=== PATIENT | female | born 1985 | race Hispanic/Latino ===

== ENCOUNTER 2021-06-04 14:20 | Emergency (ER) | payer OTHER ==
[~2021-06-04] VITALS: Ht 157.5 cm; Wt 81.7 kg
[2021-06-04] MEDS ORDERED: HYDROCODON-ACE1 EA10 PO (17:45)
--- OUTSIDE RECORDS SUMMARY | 2021-06-04 20:40 | XMS ---
PreManage Notification: LESLIE GODINEZ Security Nurse Practitioner Home Assessments Events No recent Security Events currently on file CRITERIA MET - [facility] - 2 Visits in 30 Days CARE PROVIDERS There are no care providers on record at this time. Jake has no Care Guidelines for this patient. Narcisa VISIT COUNT (12 MO.) 1 [facility] 1 [facility] TOTAL 2 NOTE: Visits indicate total known visits. ED/C VISIT TRACKING (12 MO.) [facility] [place] [facility] COMPLAINT: - L KNEE INJURY 06/03/2021 12:37 [facility] TYPE: Emergency DIAGNOSES: - Knee Pain - Displaced transverse fracture of left patella, initial encounter for closed fracture INPATIENT VISIT TRACKING (12 MO.) No inpatient visits to display in this time frame [email or web address]
== END 2021-06-04 20:23 | disposition home or self-care (01) ==
LOC: ED 14:20
DX: S82.002A Unspecified fracture of left patella, initial encounter for closed fracture (principal); Z79.891 Long term (current) use of opiate analgesic; W19.XXXA Unspecified fall, initial encounter
CPT/HCPCS: 73560; 99283-25

== ENCOUNTER 2021-06-15 09:52 | Day surgery (SDC) | payer OTHER ==
[~2021-06-15] VITALS: Ht 157.5 cm; Wt 80.0 kg
--- NOTE | ~2021-06-15 | OR ---
[facility] [address], [place] [address] Draft DATE OF OPERATION: 06/15/2021 SURGEON: Lindsay Shah MD PREOPERATIVE DIAGNOSIS: Displaced transverse left patella fracture. POSTOPERATIVE DIAGNOSIS: Displaced transverse left patella fracture. PROCEDURE PERFORMED: Open reduction and internal fixation of left patella. EYEWEAR MANUFACTURING TECH: None. ANESTHESIA: General. BLOOD LOSS: None. TOURNIQUET TIME: 42 minutes. IMPLANTS: 1.5 mm wire with two 1.6 K-wires. BRIEF HISTORY: Kami is a 35-year-old female who suffered an industrial accident. 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 She had a transverse fracture. However, she went to several hospitals before ending up with us. There was a delay of about 12 days to surgery. Risks and benefits of operative treatment were discussed with her and she elected to proceed. DESCRIPTION OF PROCEDURE: Once consent was obtained, she was taken to the operating room. After adequate anesthesia, she was placed on the operating room table. A well-padded proximal thigh tourniquet was placed. The leg was prepped and draped in a standard sterile fashion, exsanguinated using Esmarch bandage and tourniquet, inflated to 250 mmHg. A PATIENT NAME: KAMI GODINEZ OPERATIVE REPORT DATE OF : 83 REPORT #: [id number] PHYSICIAN: LINDSAY SHAH MD PCP: NO PRIMARY CARE PHYSICIAN REPORT IS CONFIDENTIAL AND NOT TO BE RELEASED WITHOUT AUTHORIZATION [facility] [address], [place] [address] Draft longitudinal incision was taken through the skin and subcutaneous tissue and directly down on the extensor mechanism. Subcutaneous dissection medially and laterally revealed the fracture and the in the retinaculum. The fracture was distracted and cleaned of all debris with curettes and irrigation. The fracture was a pure transverse fracture and using a large tenaculum, we were able to reduce it and palpate the undersurface which was flushed. We then held it in position and passed two K-wires across the patella from superior to inferior pole. Once this was completed, the mm wire was placed in the in a standard [id number] configuration beneath the two wires through the tendon with twists at the superior medial and superior lateral poles of the patella. Once this was accomplished, the wire was tensioned until the K-wires just started to bend. The two twists in the tension band were then buried in the soft tissue. Both K-wires were then cut and bent distally such that they were hooked. Two small incisions in the patellar tendon allowed us to pull them proximally engaging the wire. The proximal ends were then cut and bent similarly. Once this was completed, the knee was taken through range of motion from 0 to 90 degrees, however, it was extremely stiff from the long delay of the surgery. We were able to get it to about 100 degrees with no gapping at the fracture site. The wound was copiously irrigated with normal saline and closed with #0 Stratafix and andreina. Wound was dressed with an Acticoat 7 dressing, ABD, and Pedro wrap. She tolerated the procedure well. All sponge, needle, and instrument counts were correct. Lindsay Shah MD BA/HANK /[id number] Copies: ~ PATIENT NAME: RAE MENDOZAKAMI OPERATIVE REPORT DATE OF : 83 REPORT #: [id number] PHYSICIAN: LINDSAY SHAH MD PCP: NO PRIMARY CARE PHYSICIAN REPORT IS CONFIDENTIAL AND NOT TO BE RELEASED WITHOUT AUTHORIZATION
[~2021-06-15 09:52] MED LIST: HYDROCODON-ACE1 EA10 PO
--- NOTE | 2021-06-15 10:25 | NUR ---
BOTH NARES SWABBED FOR COVID-19 WITHOUT COMPLICATION. SAMPLE TAKEN TO LAB.
--- NOTE | 2021-06-15 11:25 | NUR ---
1100-PATIENT BACK TO ROOM FROM PACU ON RA. RECEIVED REPORT FROM ASAD SOLORIO. PATIENT IS AWAKE AND TALKING. VSS. DENIES PAIN AND NAUSEA. PATIENT IS ON CBI WITH LIGHT PINK URINE OUTPUT. ORDERED PATIENT LUNCH. PATIENT IS DRINKING WATER. CALL LIGHT WITHIN REACH. 1120-LUNCH PROVIDED TO PATIENT.
[2021-06-15] MEDS ORDERED: HYDROCODON-ACE1 EA11 PO (14:22)
[2021-06-15] MEDS ORDERED: DICLOFENAC SODI75 MG PO (14:22)
--- NOTE | 2021-06-15 14:31 | NUR ---
06/15/21 1431 Nadja Shah 1420 PT TO PACU ORAL AIRWAY IN PLACE O2 VIA MASK.
--- NOTE | 2021-06-15 15:33 | NUR ---
1520 PT RETURNED TO ROOM FROM PACU AWAKE AND TALKING DENIES PAIN OR NAUSEA.
--- NOTE | 2021-06-15 16:00 | NUR ---
PT SLEEPING COMFORABLY, AT BEDSIDE, CALL LIGHT WITHIN REACH
--- NOTE | 2021-06-15 17:23 | NUR ---
1630 PT DRINKING CHICKEN BROTH TOLERATES WELL, 1645 HELPED PT UP TO BATHROOM VIA WHEELCHAIR, SHE WAS ABLE TO VOID 500 ML OF CLEAR YELLOW URINE. HELPED PT GET DRESSED, GAVE PT DISCHARGE INSTRUCTIONS IN GABONESE WITH PRESENT, BOTH VOICED UNDERSTANDING.
== END 2021-06-15 17:15 | disposition home or self-care (01) ==
LOC: DS 09:52
PROVIDERS: ATTEND Specialist
PROC: 0QSF04Z Reposition Left Patella with Internal Fixation Device, Open Approach (ICD-10-PCS; principal; 2021-06-15 15:00)
DX: S82.032A Displaced transverse fracture of left patella, initial encounter for closed fracture (principal); W01.0XXA Fall on same level from slipping, tripping and stumbling without subsequent striking against object, initial encounter; Z20.822 Contact with and (suspected) exposure to COVID-19
CPT/HCPCS: 73560; 84703; C9803; J0690; J1100; J1200; J1885; J2001; J2250; J2270; J2405; J2704; J2765; J2795; J3010; J7121; U0003

== ENCOUNTER 2022-12-03 06:25 | Day surgery (SDC) | payer OTHER ==
[2022-12-02 11:32] VITALS: BP 153/84
[2022-12-02 11:54] VITALS: BP 153/84
[~2022-12-03] VITALS: Ht 157.5 cm; Wt 84.1 kg
[~2022-12-03 06:25] MED LIST changes: +DICLOFENAC SODI75 MG PO; +HYDROCODON-ACE1 EA11 PO; +OXYCODONE HCL5 MG PO
[2022-12-03 07:05] VITALS: BP 154/80
[2022-12-03] MEDS ORDERED: DICLOFENAC SODI75 MG PO (10:07)
[2022-12-03] MEDS ORDERED: HYDROCODON-ACE1 EA11 PO (10:07)
--- NOTE | 2022-12-03 10:24 | NUR ---
12/03/22 Nadja Torres 1003 PT TO PACU SLEEPING JAW THRUST NEEDED TO MAINTAIN OPEN AIRWAY O2 VIA MASK AT 6L FOGGING NOTED ON MASK.
[2022-12-03 11:07] VITALS: BP 169/83
--- NOTE | 2022-12-03 11:15 | NUR ---
LE 1100 PATIENT IS ALERT AND ORIENTED. PATIENT BREATHING EQUAL AND UNLABORED. OXYGEN SATURATIONS ABOVE 90% ON ROOM AIR. PATIENT STATES SHE IS A 4/10 IN PAIN AND THAT IT IS TOLERABLE FOR NOW. WATER AND PUDDING GIVEN TO PATIENT. PATIENT DENIES BEING NAUSEATED AT THIS TIME. PATIENT CMST INTACT ON LEFT LOWER EXTERMITIY. DRESSING IS CLEAN, DRY AND INTACT. SCD'S ON. IVF INFUSING. CALL LIGHT WITHIN REACH NO FUTHER NEEDS. NO QUESTIONS AT THIS TIME.
[2022-12-03 11:57] VITALS: BP 152/85
--- NOTE | 2022-12-03 12:01 | NUR ---
LE 1130 PATIENT ALERT AND ORIENTED. PATIENT BREATHING EQUAL AND UNLABORED. OXYGEN SATURATIONS ABOVE 90% ON ROOM AIR. PATIENT STATES "MY PAIN IS MUCH BETTER RIGHT NOW." PATIENT DENIES FEELING NAUSEATED. SURGICAL SITE IS CLEAN, DRY AND INTACT. ICE ON PLACED ON SURGICAL SITE. ELEVATED WITH PILLOW. SCD'S ON IVF INFUSING. LE 1145 PATIENT TOLERATED AMBULATION WELL TO THE BATHROOM. PATIENT WAS ABLE TO VOID CLEAR AND YELLOW URINE. PATIENT ABLE TO BEAR WEIGHT THROUGH EXTERMITIY. PATIENT BACK TO BED. CALL LIGHT WITHIN REACH NO FUTHER NEEDS. NO QUESITIONS AT THIS TIME.
--- NOTE | 2022-12-03 12:53 | NUR ---
LE 1225 PATIENT HAS MET DISCHARGE CRITERIA. DISCHARGE INSTRUCTIONS GIVEN BY MYSELF AND PLANT ENGINEERING SUPERVISOR. PATIENT UNDERSTOOD DISCHARGE INSTRUCTIONS. NO QUESTIONS AT THIS TIME. IV D/C'D WNL. PATIENT DRESSED SELF AND TOLERATED IT WELL. PATIENT WHEELED OUT OF FACILITY TO PRIVATE AUTO. NO FUTHER NEEDS.
--- NOTE | 2022-12-06 08:41 | OR ---
[facility] [address], [place] [address] Signed DATE OF OPERATION: 12/03/2022 SURGEON: Lindsay Shah MD PREOPERATIVE DIAGNOSIS: Painful broken hardware, left knee. POSTOPERATIVE DIAGNOSIS: Painful broken hardware, left knee. PROCEDURE PERFORMED: Removal of hardware, deep, left knee. DETAIL ASSEMBLER: None. ANESTHESIA: General. BLOOD LOSS: None. TOURNIQUET TIME: 35 minutes. BRIEF HISTORY: Kami is a 36-year-old female, who had a patellar fracture, was treated with a standard tension band [id number] construct. She healed uneventfully, however, continued to have pain and the wire was broken. Risks and benefits of the operative treatment were discussed with her and she elected to proceed. Once consent was obtained, she was taken to the operating room after adequate anesthesia. She was placed on the operating table. All downside pressure points well padded. A well-padded proximal thigh tourniquet was placed. The leg was then prepped and draped in a standard sterile fashion, exsanguinated using Esmarch bandage and tourniquet inflated to 250 mmHg. The prior incision was marked out and two-third of the incision was used, carried through the skin and subcutaneous tissue. The wire was immediately identified, were crossed over the top of the patella. This was followed up to the wire not at the top. These were dissected free of surrounding soft tissue with care taken to protect the tendon as much as possible. Both wire knots proximally removed as well as the transverse piece. The distal extent of the two K-wires were then identified under image Electronically Signed By: LINDSAY SHAH MD 12/06/22 0841 PATIENT NAME: KAMI GODINEZ OPERATIVE REPORT DATE OF : 83 REPORT #: [id number] PHYSICIAN: LINDSAY SHAH MD PCP: NO PRIMARY CARE PHYSICIAN REPORT IS CONFIDENTIAL AND NOT TO BE RELEASED WITHOUT AUTHORIZATION [facility] [address], [place] [address] Signed intensifier guidance and removed. The remaining piece of wire was removed. Final radiographs showed no remaining hardware. The wound was copiously irrigated with normal saline, closed with 2-0 Monocryl and andreina. Wound was dressed with Allevyn dressing and ABD and Pedro wrap. She tolerated the procedure well. All sponge, needle, and instrument counts were correct. Lindsay Shah MD BA/MODL /[id number] Copies: ~ Electronically Signed By: LINDSAY SHAH MD 12/06/22 0841 PATIENT NAME: KAMI GODINEZ OPERATIVE REPORT DATE OF : 83 REPORT #: [id number] PHYSICIAN: LINDSAY SHAH MD PCP: NO PRIMARY CARE PHYSICIAN REPORT IS CONFIDENTIAL AND NOT TO BE RELEASED WITHOUT AUTHORIZATION
== END 2022-12-03 12:25 | disposition home or self-care (01) ==
LOC: DS 06:25
PROVIDERS: ATTEND Specialist
PROC: 0YPB0YZ Removal of Other Device from Left Lower Extremity, Open Approach (ICD-10-PCS; principal; 2022-12-03 08:45)
DX: T84.013A Broken internal left knee prosthesis, initial encounter (principal); Y79.2 Prosthetic and other implants, materials and accessory orthopedic devices associated with adverse incidents; Y83.9 Surgical procedure, unspecified as the cause of abnormal reaction of the patient, or of later complication, without mention of misadventure at the time of the procedure
CPT/HCPCS: 64447; 73560; 76942; A9270; J0690; J1100; J2250; J2405; J2704; J3010; J7121